=== PATIENT | female | born 1985 | race Caucasian/White ===

== ENCOUNTER 2017-07-23 10:41 | Emergency (ER) | payer SELFPAY ==
[2017-07-23] MEDS ORDERED: fentaNYL 100 MCG/2 ML INJ IVP ONE (11:20)
[2017-07-23] MEDS ORDERED: NS 1,000 ML IV ONE (11:20)
[2017-07-23] MEDS ORDERED: ONDANSETRON 4 MG/2 ML VIAL IVP ONE (11:20)
--- NOTE | 2017-07-23 11:23 | EDPHY ---
H & P Time Seen by Provider: 07/23/17 10:56 HPI/ROS: CHIEF COMPLAINT: Abdominal pain HISTORY OF PRESENT ILLNESS: 32-year-old female presents to the emergency department with abdominal pain and vomiting. The pain woke her up abruptly out of her sleep at 2:00 a.m.. It has been constant since then with waves of colicky type pain. She vomited once this morning. She had a normal bowel movement this morning followed by an episode of diarrhea. No melena or blood in her stool. No reported trauma. No back pain. No urinary symptoms. No chest pain or difficulty breathing. She has never had pain like this in the past. She has an IUD and she denies . She does not get regular menstrual cycles. REVIEW OF SYSTEMS: Constitutional: No fever, no chills. Eyes: No double or blurry vision. ENT: No sore throat. Respiratory: No cough, no shortness of breath. Cardiac: No chest pain. Gastrointestinal: Abdominal pain, diarrhea as above. Vomiting x1. Genitourinary: No dysuria. Musculoskeletal: No neck or back pain. Skin: No rashes. Neurological: No headache. Past Medical/Surgical History: IUD Social History: Single Smoking Status: Never smoked Physical Exam: General Appearance: Alert, no distress. Afebrile. Appears comfortable. Eyes: Pupils equal and round. Extraocular motions are all intact. ENT: Mouth: Mucous membranes moist. Respiratory: No wheezing, rhonchi, or rales, lungs are clear to auscultation. Cardiovascular: Regular rate and rhythm. Gastrointestinal: Abdomen is soft. Diffusely tender to palpate in her abdomen is specially in her right lower quadrant and suprapubic area. There is no rebound, guarding or masses noted. No CVA tenderness bilaterally. Neurological: Alert and oriented x 3, cranial nerves II through XII grossly intact Skin: Warm and dry, no rashes. Musculoskeletal: Nontender to palpate along the cervical, thoracic or lumbar spine. Neck is supple. Extremities: Full range of motion and no peripheral edema. Psychiatric: Patient is oriented X 3, there is no agitation. Constitutional: Initial Vital Signs Temperature (C) 37.1 C 07/23/17 10:43 Heart Rate 89 07/23/17 10:43 Respiratory Rate 16 07/23/17 10:43 Blood Pressure 113/73 07/23/17 10:43 O2 Sat (%) 96 07/23/17 10:43 O2 Delivery Mode Room Air Allergies/Adverse Reactions: penicillin G Allergy (Verified 07/23/17 10:42) Home Medications: Medication Instructions Recorded NK [No Known Home Meds] 07/23/17 Medical Decision Making - Diagnostics Imaging: Discussed imaging studies w/ feed miller Radiologist ED Course/Re-evaluation: 32-year-old female presents to the emergency department with lower abdominal pain. Laboratory studies were unremarkable. I was concerned about possible acute appendicitis. The patient has had ovarian cysts in the past and does not feel that this is similar. CT imaging of the abdomen and pelvis was ordered after consent was obtained and discussion of radiation exposure. CT imaging reveals fluid filled loops of bowel consistent with enteritis. No colitis or diverticulitis. Normal appearing appendix. The patient was given IV Toradol as well as IV normal saline. She was feeling a bit better. She understands that she likely will have a bit more diarrhea given the findings on CT scan. I do not think this patient has an acute abdomen. I do not think she needs admission to the hospital. She is comfortable being discharged home. Differential Diagnosis: Including but not limited to acute appendicitis, ovarian cyst, ovarian torsion, ectopic , colitis, enteritis - Data Points Laboratory Results: Laboratory Results 07/23/17 11:00 07/23/17 11:00 Medications Given: Discontinued Medications Fentanyl (Sublimaze) 50 mcg IVP EDNOW ONE Stop: 07/23/17 11:21 Last Admin: 07/23/17 12:48 Dose: 50 mcg Sodium Chloride (Ns) 1,000 mls @ 0 mls/hr IV ONCE ONE PRN Reason: Wide Open Stop: 07/23/17 11:21 Last Admin: 07/23/17 12:49 Dose: 1,000 mls Ketorolac Tromethamine (Toradol) 30 mg IVP EDNOW ONE Stop: 07/23/17 14:06 Last Admin: 07/23/17 14:10 Dose: 30 mg Ondansetron HCl (Zofran) 4 mg IVP EDNOW ONE Stop: 07/23/17 11:21 Last Admin: 07/23/17 12:48 Dose: 4 mg Departure - Departure Disposition: Home, Routine, Self-Care Clinical Impression: Abdominal pain Qualifiers: Abdominal location: lower abdomen, unspecified Qualified Code(s): R10.30 - Lower abdominal pain, unspecified Condition: Good Instructions: Acute Abdominal Pain (ED) Additional Instructions: Abdominal Pain: Return to the Emergency Department immediately for increasing pain, fever, vomiting, or if not completely better in 8-12 hours. Adult Pain & Fever Control: We recommend Acetaminophen (Tylenol) and Ibuprofen (Motrin,Advil) for pain and fever control. When fever is high or pain severe, both drugs can be used at the same time, but at different intervals. Please note the time differences. Your dose is: Acetaminophen [1000]mg every 4 to 6 hours Ibuprofen [600]mg every [8] hours with food Note: do not take Acetaminophen with Hydrocodone (Vicodin, Lortab) or Oycodone (Percocet). These medications also contain Acetaminophen. No more than 3000mg of Acetaminophen should be taken in 24 hours (for an adult). You should NOT take additional ibuprofen until bedtime tonight since your given IV Toradol in the emergency department. Referrals: Shruthi Gilmore MD [Medical Doctor] - 1 day, if not improved (Primary care provider collection systems consultant)
[2017-07-23 11:27] LABS: COLOR YELLOW; LEUKOCYTE ESTERASE,URINE NEGATIVE (NEGATIVE); NITRITE,URINE NEGATIVE (NEGATIVE)
[2017-07-23 11:30] LABS: % IMMATURE GRANULYOCYTES 0.2 % (0.0-1.1); ABSOLUTE IMMATURE GRANULOCYTES 0.02 10^3/uL (0.00-0.10); ADD DIFF? NO; ADD MORPH? NO; ADD SCAN? NO; ATYPICAL LYMPHOCYTE FLAG 0 (0-99); FRAGMENT RBC FLAG 0 (0-99); HEMATOCRIT 42.2 % (38.0-47.0); HEMOGLOBIN 15.1 g/dL (12.6-16.3); LEFT SHIFT FLG 0 (0-99); LIPEMIA HEMOLYSIS FLAG 90 (0-99); MEAN CELL HEMOGLOBIN 32.5 pg (27.9-34.1); MEAN CELL HEMOGLOBIN CONCENTR. 35.8 g/dL (32.4-36.7); MEAN CELL VOLUME 90.8 fL (81.5-99.8); MEAN PLATELET VOLUME 8.6 fL (8.7-11.7); PLATELET CLUMPS FLAG 30 (0-99); PLATELET COUNT 219 10^3/uL (150-400); RED BLOOD CELL COUNT 4.65 10^6/uL (4.18-5.33); RED CELL DISTRIBUTION WIDTH 12.8 % (11.5-15.2)
[2017-07-23 11:49] LABS: ANION GAP 13 mEq/L (8-16); CALCIUM 8.8 mg/dL (8.5-10.4); CARBON DIOXIDE 23 mEq/l (22-31); CHLORIDE 101 mEq/L (97-110); CREATININE 0.7 mg/dL (0.6-1.0); GLOMERULAR FILTRATION RATE > 60; GLUCOSE 86 mg/dL (70-100); SODIUM 137 mEq/L (134-144)
[2017-07-23] MEDS ORDERED: IOPAMIDOL (ISOVUE-300) 100 ML BTL ONE (12:45)
[2017-07-23] MEDS ORDERED: KETOROLAC 30 MG/1 ML SDV IVP ONE (14:05)
[2017-07-23 14:15] VITALS: BP 117/77; PULSE 85; RESP 17; TEMP 98.4; O2SAT 92
[2017-07-23 14:43] LABS: BACTERIA TRACE /hpf (NONE SEEN)
[2017-07-23 14:55] LABS: BILIRUBIN,TOTAL 1.8 mg/dL (0.1-1.4); BILIRUBIN-CONJUGATED 0.3 mg/dL (0.0-0.5); BILIRUBIN-UNCONJUGATED 1.5 mg/dL (0.0-1.1); TOTAL PROTEIN 7.2 g/dL (6.3-8.2)
== END 2017-07-23 14:57 | disposition home or self-care (01) ==
DX: R10.30 Lower abdominal pain, unspecified (principal); R11.10 Vomiting, unspecified
CPT/HCPCS: 96374; J1885; J2405; J3010; Q9967